=== PATIENT | female | born 1980 | race African-American/Black ===

== ENCOUNTER 2016-10-13 09:14 | Emergency (ER) | payer MEDICAID ==
[~2016-10-13] VITALS: Ht 162.6 cm; Wt 106.6 kg
[2016-10-13 09:29] VITALS: BP_SYST 117; BP_SYST 135
[2016-10-13 09:55] VITALS: BP_SYST 128
== END 2016-10-13 09:55 | disposition home or self-care (01) ==
LOC: SED 09:14
DX: J06.9 Acute upper respiratory infection, unspecified (principal); H10.9 Unspecified conjunctivitis; I10 Essential (primary) hypertension
CPT/HCPCS: 99283